=== PATIENT | male | born 1965 | race Hispanic/Latino ===

== ENCOUNTER → 2023-10-06 13:51 | Outpatient (REF) | payer OTHER, SELFPAY ==
[2023-10-06 15:23] LABS: % Basophils 0.7 % (0-2); % Eosinophils 7.7 % (0-6); % Immature Granulocytes 0.4 % (0-0.5); % Lymphocytes 23.8 % (20.5-51.1); % Neutrophils 56.4 % (42.2-75.2); Absolute Basophils 0.1 10^3/uL (0-0.2); Absolute Eosinophils 0.6 10^3/uL (0-0.7); Absolute Lymphocytes 1.8 10^3/uL (1.2-3.4); Absolute Monocytes 0.8 10^3/uL (0.1-0.6); Absolute Neutrophils 4.2 10^3/uL (1.4-6.5); Hematocrit 43.1 % (39.0-52.0); Hemoglobin 14.6 g/dL (13.0-18.0); Mean Corp Hgb Conc. 33.9 g/dL (33.0-37.0); Mean Corpuscular Hgb 29.5 pg (27.0-31.0); Mean Corpuscular Volume 87.1 fL (80.0-94.0); Mean Platelet Volume 9.3 fL (7.4-10.4); Nucleated Red Blood Cells % 0 % (-); Platelet Count 233 10^3/uL (130-400); Red Blood Cell Count 4.95 10^6/uL (4.70-6.10); Red Cell Dist. Width 12.9 % (11.5-14.5); White Blood Cell Count 7.4 10^3/uL (4.8-10.8)
[2023-10-06 15:40] LABS: ALT (SGPT) 19 U/L (0-50); AST (SGOT) 27 U/L (17-59); Albumin 4.2 g/dl (3.5-5.0); Alkaline Phosphatase 97 U/L (38-126); Blood Urea Nitrogen 11 mg/dl (9-20); Calcium 8.6 mg/dl (8.4-10.2); Carbon Dioxide 27 mmol/L (22-30); Chloride 99 mmol/L (98-107); Glucose 138 mg/dl (70-99); HDL Cholesterol 41 mg/dl; LDL Cholesterol, Calculated 92 mg/dl; Potassium 4.5 mmol/L (3.5-5.1); Sodium 133 mmol/L (135-145); Total Bilirubin 1.1 mg/dl (0.2-1.3); Total Cholesterol 173 mg/dl (50-199); Total Protein 7.7 g/dl (6.3-8.2); Triglyceride 204 mg/dl (10-149); Very Low Density Lipoprotein 40 mg/dl (0-30); eGFR > 60.00
[2023-10-06 15:47] LABS: Urine Protein 5 mg/dl
[2023-10-06 15:51] LABS: Microalbumin, Random Urine 6.2 mg/dl (0.6-1.7); Microalbumin/creatinine Ratio 22.5 mg/g
[2023-10-07 09:31] LABS: Glycohemoglobin (HgbA1c) 8.3 % (4.0-5.6)
== END ==
LOC: REG 13:51
PROVIDERS: ATTENDING PHYSICIAN Physician Assistant
DX: E11.9 Type 2 diabetes mellitus without complications (principal)
CPT/HCPCS: 36415; 80053; 80061; 82043; 82570; 83036; 84156; 85025

== ENCOUNTER → 2025-04-26 08:09 | Outpatient (REF) | payer OTHER, SELFPAY ==
[2025-04-26 09:50] LABS: ALT (SGPT) 17 U/L (0-50); AST (SGOT) 24 U/L (17-59); Albumin 4.1 g/dl (3.5-5.0); Alkaline Phosphatase 98 U/L (38-126); Blood Urea Nitrogen 14 mg/dl (9-20); Calcium 8.8 mg/dl (8.4-10.2); Carbon Dioxide 21 mmol/L (22-30); Chloride 107 mmol/L (98-107); Glucose 115 mg/dl (70-99); HDL Cholesterol 44 mg/dl; LDL Cholesterol, Calculated 77 mg/dl; Potassium 4.5 mmol/L (3.5-5.1); Sodium 138 mmol/L (135-145); Total Protein 7.5 g/dl (6.3-8.2); Very Low Density Lipoprotein 29 mg/dl (0-30); eGFR > 60.00
[2025-04-26 09:59] LABS: TSH 1.79 uIU/ml (0.47-4.68)
[2025-04-26 10:39] LABS: Microalbumin, Random Urine 0.9 mg/dl (0.6-1.7)
[2025-04-26 10:41] LABS: Microalb - Urine Creatinine 89.500 mg/dl
[2025-04-26 13:42] LABS: Glycohemoglobin (HgbA1c) 5.6 % (4.0-5.6)
[2025-04-26 13:49] LABS: Hemoglobin 13.3 g/dL (13.0-18.0)
[2025-04-26 13:50] LABS: Hematocrit 34.6 % (39.0-52.0); Mean Corp Hgb Conc. 32.8 g/dL (33.0-37.0); Mean Corpuscular Volume 91.5 fL (80.0-94.0)
[2025-04-26 13:51] LABS: Platelet Count 245 10^3/uL (130-400); Red Cell Dist. Width 14.1 % (11.5-14.5)
[2025-04-26 13:54] LABS: Nucleated Red Blood Cells % 0 % (-)
== END ==
LOC: REG 08:09
PROVIDERS: ATTENDING PHYSICIAN Physician Assistant; FAMILY PHYSICIAN Family Medicine
DX: E11.65 Type 2 diabetes mellitus with hyperglycemia (principal); E11.9 Type 2 diabetes mellitus without complications
CPT/HCPCS: 36415; 80053; 80061; 82043; 82570; 83036; 84156; 84443; 85025